=== PATIENT | male | born 1960 | race Caucasian/White ===

== ENCOUNTER 2022-01-31 02:51 | Day surgery (SDC) | payer OTHER, SELFPAY ==
[2022-01-30 17:35] VITALS: BMI 28.6
--- NOTE | 2022-01-30 18:02 | SUR.PREOP ---
Report to the Outpatient Waiting Room, entrance under the green pavilion located off [facility], at time 0630 on date 01/31/22. OR Time: 0830. - You and your visitor will be asked a series of questions to screen for COVID 19 for your protection. - Only one visitor is allowed at this time. - The patient visitor is requested to leave or wait in car when not with patient. - A mask is required within the hospital. Patients may have clear liquids (water, carbonated beverages, clear teas, apple juice) until 3 hours prior to surgery (0530) with a maximum of 20 ounces. - No food from midnight until time of surgery - Infants may have breast milk until 4 hours before surgery, formula 6 hours prior to surgery. - Children will be allowed to drink immediately following surgery. If applicable, please bring a bottle or sippy cup to assist with drinking. Juice, water, soda, and popsicles are readily available. For infants on formula, please bring formula the day of surgery. Pacifiers are allowed. Take the following medications with a SIP of water the morning of surgery: Carvedilol, Diltiazem HCL Medications to discontinue per physician NA Date to take last dose NA Please no make-up, nail irish, hairspray, perfume, deodorant, or body powder the day of surgery. No jewelry (including any body piercings) or valuables the day of surgery, leave them at home. Please take a shower or bath the night before, or the morning of, surgery with an antibacterial soap. Wear comfortable, loose fitting clothing. Children are encouraged to wear pajamas. - Jewelry must be removed prior to entering the operating room. Rings and piercings that are not removed may be cut off. - The hospital will not accept responsibility for valuables. - Please leave all valuables, including medications, at home the day of surgery. If you are going home after surgery, a licensed sprinkling truck driver must drive you home. - NO public transportation without another adult. - We recommend that an adult stay with you for 24 hours following discharge. - We also recommend that you do not drive, make important decision, drink alcoholic beverages, or take any drugs that were not prescribed by your health care provider for at least 24 hours after your discharge time. For Pediatric surgeries, we recommend two adults accompany the child home (only one inside the building at this time). Follow any additional instructions given to you from your surgeon. If you or anyone in your household have experienced Covid symptoms in the past week, please notify your surgeon or the nurse liaison at the phone number below for possible testing. Telephone instructions given to ____patient and asked if any additional questions and then verbalized understanding. Patient advised to call surgeon office or pre surgery nurse liaison [phone] if any additional questions.
--- NOTE | ~2022-01-31 | XR_ITS ---
EXAMINATION: XR surgery orthopedic DATE: 01/31/2022 10:49 INDICATION: Post amputation of the left fourth toe TECHNIQUE: Single dorsal plantar fluoroscopic image of the left forefoot was obtained during procedur e performed by Dr. Mays. Radiologist was not present for the imaging or procedure. The amount of fluoroscopy time used during this procedure was 0.1 minutes. COMPARISON: None. FINDINGS: Partial left fourth toe amputation with osteotomy at the level of the distal neck of the fourth proxi mal phalanx. There is some postoperative gas in the soft tissues along the resection margin. Remainde r of the bones are in normal alignment with no fracture and with normal joint spaces. IMPRESSION: 1. Left fourth toe amputation with osteotomy at the level of the distal neck of the fourth proximal p halanx. Reviewed, dictated and finalized at location A. IMPRESSION: 1. Left fourth toe amputation with osteotomy at the level of the distal neck of the fourth proximal phalanx.
--- NOTE | 2022-01-31 07:08 | WPDHPUPDATE1 ---
History and Physical Update Update Date/Time: 01/31/22 07:08 History and Physical has been reviewed, including an updated exam of the patient. There are NO changes in the patient's condition. Risks, benefits, and alternatives have been discussed and questions answered. Patient agrees to proceed with procedure.
[2022-01-31 07:53] VITALS: BP 173/86; PULSE 83; RESP 16; TEMP 36.6; O2SAT 99
[2022-01-31 08:15] LABS: Glucose Point of Care 123 mg/dl (65-105)
--- NOTE | 2022-01-31 09:26 | WPDANESEPPF ---
Anes - Initial Pre Proc Eval Procedure: Operation Date: 01/31/22 10:15 Proposed Procedures p Partial Amputation Fourth Toe Left Foot - John Mays JR, MD Date/Time: 01/31/22 09:26 Surgeon: John Mays JR, MD Pre Op Diagnosis: Osteomyelitis Left 4th toe Patient Data Age: 61 Gender: M Height: 1.8 m Weight: 93.44 kg Last Vital Signs Temp 36.6 C 01/31/22 07:53 Pulse 83 01/31/22 07:53 Resp 16 01/31/22 07:53 BP 173/86 H 01/31/22 07:53 Pulse Ox 99 01/31/22 07:53 O2 Del Method Room Air 01/31/22 07:53 Allergies Allergy/AdvReac Type Severity Reaction Status Date / Time No Known Allergies Allergy Verified 01/31/22 07:49 Home Medications Medication Instructions Recorded Confirmed Type aspirin 325 mg tablet (Kassandra 325 mg PO DAILY 03/16/20 01/30/22 History Aspirin) carvedilol 25 mg tablet 25 mg PO Q12H 03/16/20 01/30/22 History diltiazem HCl 120 mg capsule,24 120 mg PO DAILY 03/16/20 01/30/22 History hr,extended release (Taztia XT) simvastatin 40 mg tablet 40 mg PO DAILY #90 tabs 06/09/21 01/30/22 Rx lisinopril 40 mg tablet 40 mg PO DAILY #90 tabs 08/16/21 01/30/22 Rx glimepiride 4 mg tablet 4 mg PO BID #180 tabs 11/18/21 01/30/22 Rx metformin 500 mg tablet 500 mg PO TID #270 tabs 01/25/22 01/30/22 Rx Laboratory Tests 01/31/22 08:13 POC Capillary Glucose 123 mg/dl H mg/dl (65-105) Patient hx anesthesia problems: none Family hx anesthesia problems: none Results Review: All pre-operative results and documents have been reviewed as part of the pre-operative evaluation. [facility] Past Medical History Medical History (Updated 01/31/22 @ 09:27 by Andrea Aponte MD) Atherosclerotic heart disease of nikolai coronary artery without angina pectoris CAD (coronary artery disease) Essential (primary) hypertension Gastro-esophageal reflux disease without esophagitis Obesity (BMI 30-39.9) Olecranon bursitis JOHN (obstructive sleep apnea) Other hyperlipidemia Smoker Type 2 diabetes mellitus Surgical History Surgical History Hx of coronary artery bypass graft Hx of hemorrhoidectomy Hx of vasectomy Family History Family History Other Cancer Rheumatoid arthritis Social History Social History Smoking packs per day: 0.5 Smoking cigarettes per day: 10.0 Years smoked: 10 Smoking pack-years: 5.00 Smoking status: Current every day smoker Tobacco type: cigarettes Second hand tobacco smoke exposure: No Smoking end date: 07/06/11 Alcohol intake: current Drinks per week: 8 Living arrangements: with family 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 Informed Consent: The patient's anesthetic plan and its attendant risks and benefits were discussed with the patient/family/POA. Questions were solicited and answers provided to the satisfaction of the patient/family/POA.
[2022-01-31] MEDS: ceFAZolin 2 GM/D5W 50 ML 2 GM/50 ML BAG IVPB (10:16)
[2022-01-31] MEDS: BUPIVACAINE HCL 0.5% PF 30 ML VIAL INFILTRATE (10:41)
[2022-01-31] MEDS: LIDOCAINE HCL 2% LOCAL INJ 20 ML VIAL INFILTRATE (10:43)
--- NOTE | 2022-01-31 10:46 | SUR.OPER ---
FOURTH TOE CULTURE SENT TO LAB PER JN BINGHAM AND RECEIVED BY AREN IN PATH.
[2022-01-31 10:54] VITALS: BP 135/74; PULSE 79; RESP 14; O2SAT 96
--- NOTE | 2022-01-31 11:05 | W.PM.PROC2 ---
Procedure Note - Detailed Date of Procedure 01/31/22 Pre-op Diagnosis Osteomyelitis Left 4th toe Post-op Diagnosis Same Procedure Performed Partial amputation of the left fourth digit Surgeon John Mays JR, DPM Anesthesia MAC and Local Indications Chronic ulcer with contiguous osteomyelitis of the fourth toe left foot Findings Osteolysis with purulence extending to the head of the proximal phalanx of the left foot fourth toe Description of Procedure Under mild sedation, the patient was brought to the operating room, placed on the operating table in the supine position. A pneumatic ankle tourniquet was placed about the patient's ankle. Following general anesthesia, I performed a proximal fourth metatarsal Rodríguez Block. The foot was then scrubbed, prepped, and draped in the usual aseptic manner. An Esmarch bandage was then used to examine the patient's foot and pneumatic ankle tourniquet was then inflated. Surgery began in the following manner. Attention was directed to the dorsal aspect of the fourth toe left foot at the head of the proximal phalnx foot where a modified fish mouth incision was made about the head of the proximal phalanx. The distal aspect of the fourth digit phalanges were lytic with purulence was noted. I disarticulated at the proximal interphalangeal joint. All bleeders were cauterized as necessary. Next, purulence was noted extending to the head of the proximal phalanx so I used a bone cutter to resect the head of the proximal phalanx until healthy bleeding bone was noted at the diaphysis of the bone. It was flushed with copious amounts of sterile saline. The 4th digit was removed from the operative site and placed on the back table and later sent for gross and histopathology. I also took a deep wound culure swab from the disarticulation site. The remaining tissue was healthy and bleeding. The wound site was then flushed with copious amounts of sterile saline. Next, the skin was reapproximated and coapted utilizing 4-0 Prolene in simple interrupted suture fashion technique. Upon completion of the procedure, the incision was dressed with Adaptic, 4 x 4's, Kerlix, and Coban. The pneumatic ankle tourniquet was then deflated and a prompt hyperemic response noted to all digits of the foot. A surgical shoe was then applied. The patient did very well with the procedure and the anesthesia. The patient was transferred to the recovery room with vital signs stable and vascular status intact to all remaining toes of the affected foot. Following a period of postoperative monitoring, the patient will be discharged home on the following written and oral postoperative instructions: 1. Keep the dressing clean, dry, and intact. Use a cast protector bag with showers. 2. The patient should use a surgical shoe for ambulation postoperatively. 3. The patient should be on bedrest with bathroom privileges and elevate the affected foot when at rest. 4. The patient to contact Dr. Mays for all postop care and if any problems arise. 5. Prescriptions were written for Bactrim DS to be taken 1 p.o. q. 12 hours until gone.He may take regular or extra strengh Tylenol for discomfort. He is neuropathic so severe pain is not anticipated. Estimated Blood Loss 1 Tourniquet Time 16 Pathology Yes Complications No immediate complications Condition Stable Disposition Same day
[2022-01-31 11:11] LABS: Glucose Point of Care 107 mg/dl (65-105)
[2022-01-31 11:20] VITALS: BP 149/75; PULSE 73; RESP 16
[2022-01-31 11:50] VITALS: BP 152/77; PULSE 72; RESP 16
== END 2022-01-31 12:00 | disposition home or self-care (01) ==
PROVIDERS: PCP Internal Medicine; Visit Provider Podiatrist Foot & Ankle Surgery
PROC: (CPT 28825; principal; 2022-01-31 10:15)
DX: E11.621 Type 2 diabetes mellitus with foot ulcer (principal); L97.529 Non-pressure chronic ulcer of other part of left foot with unspecified severity; E11.69 Type 2 diabetes mellitus with other specified complication; M86.172 Other acute osteomyelitis, left ankle and foot; I25.10 Atherosclerotic heart disease of native coronary artery without angina pectoris; I10 Essential (primary) hypertension; K21.9 Gastro-esophageal reflux disease without esophagitis; G47.33 Obstructive sleep apnea (adult) (pediatric); E78.2 Mixed hyperlipidemia; E66.9 Obesity, unspecified; Z68.28 Body mass index [BMI] 28.0-28.9, adult; F17.210 Nicotine dependence, cigarettes, uncomplicated; Z95.1 Presence of aortocoronary bypass graft; Z79.84 Long term (current) use of oral hypoglycemic drugs; Z79.82 Long term (current) use of aspirin
CPT/HCPCS: 28825; 82948; 87070; 87075; 87147; 87181; 87186; 87205; 88305; 88311; 99199; A9270; J0690; J2250; J2704; J3010

== ENCOUNTER 2022-07-31 08:08 | Outpatient (CLI) | payer OTHER, SELFPAY ==
--- NOTE | ~2022-07-31 | US_ITS ---
EXAMINATION: US art doppler w press MICHEAL BI DATE: 07/31/2022 09:02 INDICATION: Peripheral vascular disease. TECHNIQUE: Segmental pressures and plethysmographic and Doppler waveforms of the brachial and lower e xtremity arteries were obtained. COMPARISON: None. FINDINGS: Right and left brachial artery pressures of 161 mm Hg and 159 mm Hg, respectively, are concordant (no rmal difference <= 30 mmHg). The right and left high-thigh pressure indices are 0.94 and 0.91, respec tively (normal > 1.2). The right ankle-brachial index (SEAMUS) is 0.61 (normal >= 0.9-1). The right great toe-brachial index (T BI) is 0.63 (normal >= 0.6-0.8). The right lower extremity segmental pressure gradients are increased between the right high and low thigh (normal gradients <= 20-30 mmHg between adjacent levels on the same leg or the same levels on the two legs). Arterial waveforms are biphasic throughout with brisk s ystolic upstrokes at the right common femoral and superficial femoral arteries and with broadened sys tolic peaks with delayed upstrokes at the right popliteal, posterior tibial and dorsalis pedis arteri es. The left SEAMUS is 0.67. The left TBI is 0.54. The left lower extremity segmental pressure gradients are increased between the left dolzy-kqa-dica popliteal artery and the arteries at the left ankle. Arter ial waveforms are biphasic throughout with brisk systolic upstrokes at the left common femoral and cota perficial femoral arteries and with broadened systolic peaks and delayed upstrokes at the left poplit eal, posterior tibial and dorsalis pedis arteries. IMPRESSION: 1. Arterial occlusive disease to bilateral lower limbs with mildly decreased bilateral high thigh pre ssure indices, moderately decreased bilateral ankle brachial indices and with parvus and tardus wavef orms in the arteries of the bilateral lower legs. Reviewed, dictated and finalized at location L. Y ABROAD ADVISOR IMPRESSION: 1. Arterial occlusive disease to bilateral lower limbs with mildly decreased bi lateral high thigh pressure indices, moderately decreased bilateral ankle brach ial indices and with parvus and tardus waveforms in the arteries of the bilater al lower legs.
== END 2022-07-31 08:09 | disposition home or self-care (01) ==
PROVIDERS: PCP Internal Medicine; Visit Provider Internal Medicine
DX: I73.9 Peripheral vascular disease, unspecified (principal)
CPT/HCPCS: 93923

== ENCOUNTER 2025-01-12 15:55 | Outpatient (CLI) | payer OTHER, SELFPAY ==
--- NOTE | ~2025-01-12 | CT_ITS ---
CT Scan of the Chest without Contrast: Clinical Indication: Lung cancer screening, nicotine dependence Technique: Contiguous sections were acquired throughout the chest without intravenous contrast. Dose reduction technique was used on this scan by utilizing automated exposure control and iterative recon struction technique. The dose-length product (DLP) was 216.66 mGy-cm. Findings: There is no evidence of any significant mediastinal, hilar or axillary lymphadenopathy. The mediastin al soft tissues appear normal. There is no evidence of pleural or pericardial effusion. There is minimal emphysema and minimal scattered chronic interstitial changes. No discrete pulmonary nodule evident. Images through the upper abdomen reveal no abnormalities. Impression: Lung RADS 1: Negative. 12 month follow-up screening CT advised. Reviewed, dictated and finalized at location . Impression: Lung RADS 1: Negative. 12 month follow-up screening CT advised.
--- OUTSIDE RECORDS SUMMARY | 2025-01-12 15:57 | XMS_ITS | Clinical Summary ---
Author Organization [facility] Address [address] [address] Phone Care Team Providers Care Theater Usher Name Role Phone Lloyd Samaniego DO Primary Care Provider [phone] Allergies No known active allergies Medications diltiazem 120 MG Tablet daily. Active metFORMIN (GLUCOPHAGE) 500 MG Tablet 2 times daily. Active carvedilol (COREG) 25 MG Tablet 2 times daily. Active lisinopril (PRINIVIL, ZESTRIL) 20 MG Tablet daily. Active simvastatin (ZOCOR) 40 MG Tablet daily. Active glimepiride (AMARYL) 4 MG Tablet 2 times daily. Active aspirin 325 MG Tablet daily. Active Active Problems Problem Noted Date Diagnosed Date Colon polyps Hypertension DM type 2 (diabetes mellitus, type 2) Overview (06/28/2015): Non-insulin dependent CAD (coronary artery disease) Dyslipidemia Social History Tobacco Use Types Packs/Day Years Used Date Smoking Tobacco: Never Assessed Sex and Gender Information Value Date Recorded Sex Assigned at Not on file Legal Sex Male 11:32 PM CDT Gender Identity Not on file Sexual Orientation Not on file Plan of Treatment Health Maintenance Due Date Last Done Comments Diabetes: Eye Exam 1961 Diabetes: Foot Exam 1961 Diabetes: Hemoglobin A1c 1961 Hepatitis C Virus (HCV) Screening 1961 TdaP Immunization 1961 Pneumococcal Immunization Combined (1 of 2 - PCV) 1967 Diabetes: Nephropathy Screening 1979 Pneumococcal Immunization (5 0+ years) (1 of 2 - PCV) 1980 Cologuard 2011 Immunochemical Fecal Occult Blood 2011 Zoster Immunization (1 of 2) 2011 PSA Discussion 2016 Respiratory Syncytial Virus (RSV) Immunization (Adult) (1 - Risk 60-74 years 1-dose series) 2021 Colonoscopy 12/07/2023 12/06/2018, 05/04/2015 Colorectal Cancer Screening 12/07/2023 Influenza Immunization (#1) 2024 SARS-COV-2 Immunization ( season) 2024 Hepatitis B Immunization Aged Out No longer eligible based on patient's age to complete this topic Meningococcal Immunization (ACWY) Aged Out No longer eligible b ased on patient's age to complete this topic Rotavirus Immunization Aged Out No lo nger eligible based on patient's age to complete this topic Procedures Procedure Name Priority Date/Time Associated Diagnosis Comments COLONOSCOPY Routine 12/06/2018 from Last 3 Months or Most Recently Relevant to Health Maintenance Results * COLONOSCOPY (12/06/2018) us Saturnino Vogel DO PROCEDURE/MINOR SURGICAL ORDERA BLES Final Result from Last 3 Months or Most Recently Relevant to Health Maintenance Care Teams Theater Usher Relationship Specialty Start Date End Date Lloyd Samaniego DO [address] [place] [address] PCP - General Internal Medicine 09/23/17
--- OUTSIDE RECORDS SUMMARY | 2025-01-12 15:57 | XMS_ITS | Data Portability ---
Author Organization [place] - [facility], Main Office Address [address] [place] [address] Care Team Providers Care Prepress Manager Name Role Phone WHITLEY LUZ Primary Care Provider [phone] WHITLEY LUZ Referring Provider [phone] Assessment Encounter Date Assessment Date Assessment LastModified by Organization Details LastModified Time 05/08/2023 05/08/2023 HPI: 62-year-old male who came in today for evaluation of his right trapezial pain. Pain started 10 days ago. 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 He states that it felt like a sharp knife stabbing him in this area. Since that time he has had 1 episode where he was moving his arm and neck in he had a shock type sensation running into the upper arm to the elbow. This only happened 1 time. Patient has been taking klbn-heb-zwbagi r Advil use a 1 morning and 2 at night. This seems to help with his symptoms. He is still getting this sharp stabbing pain at this point and he grabs at the right trapezius muscle where he feels it. Physical exam: 62-year-old male he is 5 ft 9 209 lb. He has active elevation right shoulder to 150 external rotation 80 internal rotation is to T12. He has no pain range of motion. Excellent strength with abduction as well as external rotation of the shoulder. He has negative abdominal compression test. He has no numbness or tingling to right upper extremity. He has normal strength to the biceps, triceps, wrist flexion and extension. He has normal programmer analyst strength. Having no numbness or tingling at this point. Neck range of motion is full without discomfort. Negative Spurling's maneuver. Some mild tenderness to the right trapezius muscle on palpation. Impression: 62-year-old male who has had a strain his neck which is most likely causing some radicular symptoms into the trapezius muscle. Patient has a history of coronary artery bypass grafting done and he sees his mechanic senior next month. He gets an echo every year. He states his last ejection fraction was about 50%. I recommended that he talk with his mechanic senior about taking anti-inflammato charles to make sure he does not cause any cardiac issues by taking knees. Physician management I have recommended give patient a Medrol Dosepak that hopefully will quiet down the nerve irritation. I did offer him formal physical therapy but he declined, he works at least 12 hours a day and does not feel he is going to have time for this. Hopefully the steroids will quiet this down very quickly. If it does not he will call and we can set up some therapy. He has no motor deficit so hopefully this will quiet down very quickly. His neck looks very good on the x-rays today. clifford Not available 05/08/2023 10:43:30 Plan of Treatment Reminders Order Date Submit Date Provider Last Modified By Organization Details Last Modified Time Details Appointments None recorded. Lab None recorded. Referral None recorded. Procedures None recorded. Surgeries None recorded. Imaging XR, shoulder 2022 023 [email or web address] [facility] [place], [address], [place], [address], 3 10:00:38 XR, cervical spine, 4 or 5 view 2022 023 [email or web address] [facility] [place], [address], [place], [address], 3 10:49:54 Medication Orders Medrol (Felice) 4 mg tablets in a dose pack 2022 023 [email or web address] [facility], [address], [place], [address], 3 13:13:49 Patient TargetsNo targets recorded. Patient InstructionsNo instructions recorded. Reason for Referral None Reported. Results Created Date Observation Date Name Description Value Unit Range Abnormal Flag Note LastModifiedBy Organization Detail LastModifiedTime 05/08/20 23 XR, shoul veronica No observ ation record ed. [email or web address] [facility] [place] [address], [place], [address], 05/08/2023 10:43:22 05/08/20 23 XR, cervi shai spine , 4 or 5 view No observ ation record ed. [email or web address] [facility] [place] [address], [place], [address], 05/08/2023 10:43:21 Result Notes None recorded. Problems Name Problem SNOMED Code Status Onset Date Resolution Date Notes Provider Name and Address Organization Details Recorded Time Pain of right shoulder joint [id number] 00 Active 2022 CLAIR Bain [facility] 09:33:06 Problem Notes None recorded. Procedures Surgical History Date Name Laterality Status Provider Name and Address Organization Details Recorded Time Bypass completed CLAIR Bain [facility] 05/08/2023 09:32:40 Imaging Results None recorded. Procedure Notes None recorded. Medical Equipment None Reported. Medications Name Sig Start Date Stop Date Status Note LastModified by Organization Details LastModified Time amoxicillin 500 mg capsule TAKE 1 CAPSULE BY MOUTH THREE TIMES DAILY 05/08 completed Not Available Not Available Not Available metformin 500 mg tablet TAKE 1 TABLET BY MOUTH THREE TIMES DAILY active Not Available Not Available No t Available carvedilol 25 mg tablet TAKE 1 TABLET BY MOUTH TWICE DAILY active Not Available Not Available No t Available simvastatin 40 mg tablet TAKE 1 TABLET BY MOUTH ONCE DAILY active Not Available Not Available No t Available diltiazem ER 120 mg capsule,24 hr,extended release TAKE 1 CAPSULE BY MOUTH ONCE DAILY 05/08 completed Not Available Not Available Not Available glimepiride 4 mg tablet TAKE 1 TABLET BY MOUTH TWICE DAILY active Not Available Not Available No t Available methylpredn isolone 4 mg tablets in a dose pack TAKE BY MOUTH DIRECTED ON INSIDE OF PACKAGE active Not Available Not Available No t Available lisinopril 40 mg tablet TAKE 1 TABLET BY MOUTH ONCE DAILY active Not Available Not Available No t Available tadalafil 10 mg tablet TAKE 1 TABLET BY MOUTH ONCE DAILY NEEDED FOR SEXUAL ACTIVITY APPROXIMA TELY 30 MINUTES BEFORE SEXUAL ACTIVITY. MAX 1/DAY 05/08 completed Not Available Not Available Not Available aspirin active Not Available Not Avail able Not Available Taztia XT active Not Available Not Mary Carmen ilable Not Available Rybelsus 3 mg tablet TAKE 1 TABLET BY MOUTH ONCE DAILY active Not Available Not Available No t Available Vitals Date Recorded Body height Body mass index (BMI) Body weight Provider Name and Address Organization Details Last Updated DateTime 05/08/2023 175.26 cm 30.9 kg/m2 90231.81 g CLAIR Bain [facility] 05/08/2023 09:48:10 Social History None recorded. Functional Status Question Answer Note LastModified by Organizat ion Details LastModified Time What is your level of alcohol consumption? Occasional Information not available 05/08/2023 Mental Status None recorded. Family History Nothing Reported. Medical History No medical history recorded. Past Encounters Encounter ID Performer Location Encounter Start Date Encounter Closed Date Diagnosis/Indication Diagnosis SNOMED-CT Code Diagnosis ICD10 Code Diagnosis Note [id number] Bryant Calle MD [facility] [place] [address] [place] [address] 05/08/2023 09:04:34 05/08/2023 10:49:53 Pain of right shoulder joint [id number] M25.511 Health Concerns Section Related Observation LastModified by Organization Detai ls LastModified Time None Recorded Concern Status LastModified by Organization Details LastModified Time None Recorded Advance Directives Directive None Recorded Payers Insurance Date Sequence Insurance Name Policy Number Policy Yoon Covered Member ID Yoon Member ID Guarantor Name 05/14/2023 1 [facility] [id number] Jim Garcia [id number] Jim Garcia
--- OUTSIDE RECORDS SUMMARY | 2025-01-12 15:57 | XMS_ITS | Clinical Summary ---
Author Organization [facility] [address] Address [address] [place] [address] Care Team Providers Care Shell Sieve Operator Name Role Phone Woo Antunez MD Unavailable [phone] Jesus Momin DO Primary Care Provider [phone] Allergies No known active allergies Medications aspirin 325 mg EC tablet take 1 tablet (325MG) by oral route every day 0 2 Active metFORMIN (GLUCOPHAGE) 500 mg tablet take 1 tablet (500MG) by oral route 2 times every day with morning and evening meals 0 2 Active glimepiride (AMARYL) 4 mg tablet take 1 tablet (4MG) by oral route twice daily 0 2 Active simvastatin (ZOCOR) 40 mg tablet TAKE ONE TABLET BY MOUTH ONCE DAILY IN THE EVENING 90 tablet 3 8 Active tadalafiL (ADCIRCA) 10 mg tablet TAKE 1 TABLET BY MOUTH ONCE DAILY NEEDED FOR SEXUAL ACTIVITY APPROXIMATELY 30 MINUTES BEFORE SEXUAL ACTIVITY. MAX 1/DAY 2 Active lisinopriL (PRINIVIL,ZEST RIL) 40 mg tablet Take 1 tablet (40 mg total) by mouth daily 4 Active diltiazem (TIAZAC) 120 mg 24 hr capsule Take 1 capsule by mouth once daily 90 capsule 2 4 Active carvediloL (COREG) 25 mg tablet Take 1 tablet by mouth twice daily 180 tablet 2 4 Active Jardiance 25 mg tablet Take 1 tablet (25 mg total) by mouth daily 4 Active hydrALAZINE (APRESOLINE) 50 mg tablet 5 Active clopidogreL (PLAVIX) 75 mg tablet Take 1 tablet by mouth once daily 90 tablet 3 5 Active Active Problems Problem Noted Date Diagnosed Date Atherosclerotic PVD with intermittent claudicati on 05/04/2024 Assessment & Plan (12/23/2024 11:40 AM CDT): Continues to have non limiting claudication or any rest pain or ischemic ulcerations. Continue aspirin Plavix statin therapy strongly encouraged complete smoking cessation and follow up in 3 months with lower extremity arterial duplex with ABIs. Assessment & Plan (06/23/2024 3:50 PM WATER TREATMENT PLANT ENGINEER): Impression: Patient is status post staged endovascular intervention to bilateral lower extremity for treatment of disabling claudication. Patient reports claudication symptoms to bilateral lower extremities have resolved. Lower extremity arterial duplex reveals patent stent to the left lower extremity with triphasic waveforms. Plan: Continue ongoing risk factor modifications. -continue aspirin and Plavix. -patient to follow-up in 6 months for re-evaluation with repeat lower extremity arterial duplex. Encouraged patient to make a sooner appointment if he develops any symptoms of claudication, ischemic rest pain or nonhealing ulcerations. Pain in joint of right shoulder 05/08/2023 PVD (peripheral vascular disease) 08/27/2022 Assessment & Plan (05/26/2024 12:11 PM WATER TREATMENT PLANT ENGINEER): Status post balloon angioplasty drug-eluting stent placement x2 to left SFA. Claudication symptoms have resolved. Patient is feeling well is happy and in good spirits continue aspirin Plavix and follow-up in 1 month for new baseline lower extremity arterial duplex Assessment & Plan (05/06/2024 11:52 AM CDT): Limiting claudication to both lower extremities. Starting to affect his work and job ability. Discussed next steps of undergoing an angiogram and its potential risks. Answered all questions to his satisfaction. He is agreeable wished to proceed. Also discussed with Dr. Antunez. Assessment & Plan (02/04/2024 8:30 AM CDT): Stable non disabling bilateral lower extremity claudication. Long discussion with the patient about next steps. We agreed to continue current conservative measures which include exercise regimen and ongoing risk factor modification. We will monitor over the next 6 months. Follow up at that time. Assessment & Plan (08/03/2023 9:32 AM WATER TREATMENT PLANT ENGINEER): Bilateral lower extremity arterial occlusive disease with stable claudication symptoms. Continues to deny any worsening of the symptoms and no rest pain no open wounds. Plan: Follow-up in 6 months with a lower extremity arterial Doppler. Follow-up sooner for any worsening symptoms rest pain symptoms or open wounds. Assessment & Plan (01/13/2023 3:52 PM CDT): Patient is stable claudicant. Continues to have lower extremity claudication symptoms however they are not life-limiting at this time. Denies any rest pain or any wounds to either foot. They are warm distal signals obtained. Plan: Follow-up in 6 months for routine surveillance with a lower extremity arterial Doppler. Assessment & Plan (12/18/2022 12:07 PM CDT): New symptoms of numbness to dorsal aspect of left 1st toe, progressing to 1st through 3rd toes within the past week. Will have patient scheduled for lower extremity arterial Doppler, follow-up in the office in 1 week for re-evaluation Assessment & Plan (08/27/2022 1:13 PM WATER TREATMENT PLANT ENGINEER): Patient has evidence of bilateral lower extremity calf claudication non disabling. At this point recommended ongoing conservative measures which include exercise regimen and risk factor modification. Follow-up 6 months with repeat evaluation. CAD (coronary artery disease) 08/13/2022 Colon polyps 08/13/2022 Type 2 diabetes mellitus wit h diabetic peripheral angiopathy without gangrene, with long-term current use of insulin 08/13/2022 Overview (08/13/2022): Non-insulin dependent Assessment & Plan (06/23/2024 3:51 PM WATER TREATMENT PLANT ENGINEER): Impression: Chronic and stable Plan: Continue glimepiride and metformin Assessment & Plan (02/04/2024 8:30 AM CDT): Diabetes type 2 chronic controlled. Continue current medical management. Assessment & Plan (01/13/2023 3:52 PM CDT): Chronic diabetes being controlled with diet and medications. Continue current medical therapy. Assessment & Plan (08/27/2022 1:12 PM WATER TREATMENT PLANT ENGINEER): Chronic and controlled. Continue metformin and diet. Dyslipidemia 08/13/2022 Assessment & Plan (06/23/2024 3:50 PM WATER TREATMENT PLANT ENGINEER): Impression: Chronic stable. Plan: Continue simvastatin Assessment & Plan (02/04/2024 8:30 AM CDT): Dyslipidemia chronic controlled. Continue Zocor. Assessment & Plan (01/13/2023 3:49 PM CDT): Continue simvastatin Assessment & Plan (08/27/2022 1:12 PM WATER TREATMENT PLANT ENGINEER): Dyslipidemia chronic and controlled. Continue Zocor. 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 Cardiomyopathy, ischemic 11/03/2017 Encounters Date Type Department Care Team Description 12/22/2024 9:30 AM CDT Office Visit [facility] Vein [facility] [address] [place] [address] [address] [place] [address] Jenna Infante NP Atherosclerotic PVD with intermittent claudication (Primary Dx); Dyslipidemia; Primary hypertension; Type 2 diabetes mellitus with diabetic peripheral angiopathy without gangrene, with long-term current use of insulin (HCC) 12/22/2024 8:47 AM CDT - 12/22/2024 11:59 PM CDT Hospital Encounter [facility] Building [address] [place] [address] [address] [place] [address] Aftercare following surgery of the circulatory system Discharge Disposition: Discharge to home or self care 12/22/2024 8:45 AM CDT - 12/22/2024 11:59 PM CDT Hospital Encounter [facility] [address] [place] [address] Aftercare following surgery of the circulatory system Discharge Disposition: Discharge to home or self care from Last 3 Months Surgical History Surgery Date Site/Laterality Comments CORONARY ARTERY BYPASS GRAFT HEMORRHOID SURGERY hemorrhoidectomy VASECTOMY ANGIOPLASTY / STENTING FEMORAL 05/11/2024 Left LLE seletive angiogram. BA & stenting x2 SFA. ANGIOPLASTY 05/18/2024 Right Aortogram. RLE angiogram. DCBA RT SFA. Medical History Medical History Date Comments DM2 (diabetes mellitus, type 2) (HCC) Diabetes Type II Hypertension Hypertension Atherosclerotic heart disease CAD (coronary artery disease) GERD (gastroesophageal reflux disease) Obesity JOHN (obstructive sleep apnea) Hyperlipidemia Family History Medical History Relation Name Comments Cancer Other Rheum arthritis Other Relation Name Status Comments Other Social History Tobacco Use Types Packs/Day Years Used Date Smoking Tobacco: Former Cigarettes Q uit: 11/04/2011 Smokeless Tobacco: Never Tobacco Cessation:Counseling Given: Not Answered Alcohol Use Standard Drinks/Week Comments No 0 (1 standard drink = 0.6 oz pur e alcohol) AUDIT-C Answer Date Recorded Q1: How often do you have a drink containing alcohol? 4 or more times a week 05/18/2024 Q2: How many drinks containi ng alcohol do you have on a typical day when you are drinking? 1 or 2 Q3: How often do you have si x or more drinks on one occasion? Never 05/18/2024 Personal Safety Answer Date Recorded Have you ever been in or are you currently in a harmful physical or emotional relationship or is someone making you feel afraid or unsafe? Denies 05/18/2024 Sex and Gender Information Value Date Recorded Sex Assigned at Not on file Legal Sex Male 4:42 AM WATER TREATMENT PLANT ENGINEER Gender Identity Not on file Sexual Orientation Not on file Obstetrics History Last Filed Vital Signs Vital Sign Reading Time Taken Comments Blood Pressure 165/79 12/22/2024 9:47 AM CDT Pulse 65 12/22/2024 9:47 AM CDT Temperature 36.5 C (97.7 F) 05/18/2024 2:50 PM WATER TREATMENT PLANT ENGINEER Respiratory Rate 18 05/18/2024 4:35 PM WATER TREATMENT PLANT ENGINEER Oxygen Saturation 98% 08/11/2024 4:00 PM WATER TREATMENT PLANT ENGINEER Inhaled Oxygen Concentration - - Weight 95.3 kg (210 lb) 12/22/2024 9:47 AM CDT Height 180.3 cm (5' 11) 12/22/2024 9:47 AM CDT Body Mass Index 29.29 12/22/2024 9:47 AM CDT Plan of Treatment Health Maintenance Due Date Last Done Comments Albumin Creatinine Ratio, Urine 1961 Colon Cancer Screening-Colonoscopy 1961 Depression Screening 1961 Hemoglobin A1C 1961 Hepatitis C Screening 1961 Prostate Cancer Screening-PSA 1961 Dilated Eye Exam 1961 Foot Exam 1961 DTaP/Tdap/Td Vaccine (1 - Tdap) 1972 Hepatitis B Screening 1979 Regular Well Visit/Exam 18-64 1979 Pneumococcal vaccine <65 (1 of 2 - PCV) 1980 Zoster Vaccine (1 of 2) 2011 Lipid Panel 09/28/2024 09/29/2023, 010 11/2022, 07/11/2021, Additional history exists Influenza Vaccine (Season Ended) 2025 eGFR 05/18/2025 05/18/2024, 05/11/2024 Medical Devices Implanted Type Area Health Physics Technician Device Identifier Shelf Expiration Date Model / Serial / Lot [employer] Zilver Ptx 6mm 80mm 125cm Drug Elute Otw Delivery System [id number] - [id number] Implanted:Qty: 1 on 05/11/2024 by Woo Antunez MD at [facility] Stent [employer] [id number] 10/05/2025 [id number] / / [id number] [employer] Zilver Ptx 6mm 140mm 125cm Otw Drug Elute Delivery System [id number] - [id number] Implanted:Qty: 1 on 05/11/2024 by Woo Antunez MD at [facility] Stent [employer] [id number] 01/13/2026 [id number] / / [id number] [employer] System Closure Repair Femoral Artery Suture Mediated Perclose Prostyle 23903-48 - [id number] Implanted:Qty: 1 on 05/11/2024 by Woo Antunez MD at [facility] [employer] 03/05/2026 [id number] / / [id number] [employer] System Closure Repair Femoral Artery Suture Mediated Perclose Prostyle 50699-40 - [id number] Implanted:Qty: 1 on 05/18/2024 by Woo Antunez MD at [facility] [employer] 03/05/2026 [id number] / / [id number] Procedures Procedure Name Priority Date/Time Associated Diagnosis Comments US SEAMUS Schedule Routine, Read Routine (OP Routine) 12/22/2024 10:18 AM CDT Aftercare following surgery of the circulatory system VL US ARTERIAL DUPLEX LOWER EXTREMITY BILATERAL Schedule Routine, Read Routine (OP Routine) 12/22/2024 10:18 AM CDT Aftercare following surgery of the circulatory system EGFR STAT 05/18/2024 9:16 AM WATER TREATMENT PLANT ENGINEER PVD (peripheral vascular disease) POCT LIPID PANEL Routine 09/29/2023 3:26 PM CDT Hx of CABG from Last 3 Months or Most Recently Relevant to Health Maintenance Results * US SEAMUS (12/22/2024 10:18 AM CDT) Anatomical Region Laterality Modality Vascular N/A Ultrasound 12/22/2024 9:00 AM CDT Narrative 12/23/2024 10:50 AM CDT Lower Extremity Arterial Doppler Report Patient Name: TIARA RUBIO B : 1960 Study Date: 12/22/2024 9:00:00 AM Gender: M Mortgage Underwriter: Bria Allen RN/RVT Ref Provider: WOO ANTUNEZ Quality: Adequate Order Provider: WOO ANTUNEZ PROCEDURES: Arterial Report: Ankle - Brachial Index Doppler exam. INDICATIONS: Z48.812 Encounter for surgical aftercare following surgery on the circulatory system. HISTORY: S/P BA/STENT LEFT SFA 05/11/2024 S/P DCBA RIGHT SFA 05/18/2024. COMPARISONS: The previous exam was completed on 06/23/2024 RT PT/DP .94/1.01 LT PT/DP .99/.88. MEASUREMENTS: Right Value Left Value Rt Brachial Pressure 172 mmHg Lt Brachial Pressure 172 mmHg Rt ACTIVITIES DIRECTOR SCOUTING Pressure 111 mmHg Lt ACTIVITIES DIRECTOR SCOUTING Pressure 136 mmHg Rt DPA Pressure 113 mmHg Lt DPA Pressure 133 mmHg Rt PT SEAMUS Resting 0.65 Lt PT SEAMUS Resting 0.79 Rt DP SEAMUS Resting 0.66 Lt DP SEAMUS Resting 0.77 FINDINGS: Right Posterior Tibial Artery Analysis: The posterior tibial waveform is monophasic. Right Dorsalis Pedis Artery Analysis: The dorsalis pedis waveform is monophasic. Left Posterior Tibial Artery Analysis: The posterior tibial waveform is biphasic. Left Dorsalis Pedis Artery Analysis: The dorsalis pedis waveform is triphasic. - CONCLUSIONS: 1. Ankle-brachial index of 0.5-0.8 is consistent with claudication disease and moderate occlusive arterial disease in the bilateral lower extremities. ATTESTATION: I have reviewed and interpreted the pertinent images and measurements of this study. I attest to the conclusions in the final report that is provided above. Electronically Signed By: Woo Antunez MD 12/23/2024 10:48:31 AM CDT Procedure Note Woo Antunez MD - 12/23/2024 Lower Extremity Arterial Doppler Report Patient Name: TIARA RUBIO B : 1960 Study Date: 12/22/2024 9:00:00 AM Gender: M Mortgage Underwriter: Brai Allen RN/RVT Ref Provider: WOO ANTUNEZ Quality: Adequate Order Provider: WOO ANTUNEZ PROCEDURES: Arterial Report: Ankle - Brachial Index Doppler exam. INDICATIONS: Z48.812 Encounter for surgical aftercare following surgery on thecirculatory system. HISTORY: S/P BA/STENT LEFT SFA 05/11/2024 S/P DCBA RIGHT SFA 05/18/2024. COMPARISONS: The previous exam was completed on 06/23/2024 RT PT/DP .94/1.01 LT PT/DP.99/.88. MEASUREMENTS: Right Value Left Value Rt Brachial Pressure 172 mmHg Lt Brachial Pressure 172 mmHg Rt ACTIVITIES DIRECTOR SCOUTING Pressure 111 mmHg Lt ACTIVITIES DIRECTOR SCOUTING Pressure 136 mmHg Rt DPA Pressure 113 mmHg Lt DPA Pressure 133 mmHg Rt PT SEAMUS Resting 0.65 Lt PT SEAMUS Resting 0.79 Rt DP SEAMUS Resting 0.66 Lt DP SEAMUS Resting 0.77 FINDINGS: Right Posterior Tibial Artery Analysis: The posterior tibial waveform is monophasic. Right Dorsalis Pedis Artery Analysis: The dorsalis pedis waveform is monophasic. Left Posterior Tibial Artery Analysis: The posterior tibial waveform is biphasic. Left Dorsalis Pedis Artery Analysis: The dorsalis pedis waveform is triphasic. - CONCLUSIONS: 1. Ankle-brachial index of 0.5-0.8 is consistent with claudication diseaseand moderate occlusive arterial disease in the bilateral lower extremities. ATTESTATION: I have reviewed and interpreted the pertinent images and measurements ofthis study. I attest to the conclusions in the final report that is provided above. Electronically Signed By: Woo Antunez MD 12/23/2024 10:48:31 AM CDT us Woo Antunez MD IMG US PROCEDURES Final Re sult * US Arterial Duplex Lower Extremity Bilateral (12/22/2024 10:18 AM CDT) Anatomical Region Laterality Modality Vascular Bilateral Ultrasound 12/22/2024 9:13 AM CDT Narrative 12/23/2024 10:50 AM CDT Lower Extremity Arterial Duplex Report Patient Name: TIARA RUBIO B : 1960 (64y 5m) Gender: M Study Date: 12/22/2024 09:13:18 AM Ht(Inch): Wt(Lb): BSA: Mortgage Underwriter: Bria Allen Provider: WOO ANTUNEZ Quality: Adequate Ref Provider: WOO ANTUNEZ PROCEDURES: Arterial Report: A non-invasive vascular imaging study of the right lower extremity arteries was performed using B-mode ultrasound, color flow, and spectral Doppler. A non-invasive vascular imaging study of the left lower extremity arteries and stent was performed using B-mode ultrasound, color flow, and spectral Doppler. INDICATIONS: Z48.812 Encounter for surgical aftercare following surgery on the circulatory system. HISTORY: CLAUDICATION BLE. S/P BA/STENT LEFT SFA 05/11/2024 S/P DCBA RIGHT SFA 05/18/2024 HTN/HLD/DM/SMOKER/ CABG 2009. COMPARISONS: The previous exam was completed on 06/23/2024. MEASUREMENTS: Right Value Left Value Rt DELI CUTTER SLICER Prx PSV 85.00 cm/sec Lt DELI CUTTER SLICER Prx PSV 106.00 cm/sec Rt Profunda Prx PSV 100.00 cm/sec Lt Profunda Prx PSV 65.00 cm/sec Rt SFA Prx PSV 64 then 275 cm/sec Lt SFA Dst PSV 129.00 cm/sec Rt SFA Mid PSV 18.00 cm/sec Lt Pop Prx PSV 44.00 cm/sec Rt SFA Dst PSV 27.00 cm/sec Lt Pop Dst PSV 60.00 cm/sec Rt Pop Prx PSV 17.00 cm/sec Rt Pop Dst PSV 28.00 cm/sec STENTS: Left Value Location SFA Lt Stent Prx PSV 86.00 cm/sec Lt Stent Mid PSV 101.00 cm/sec Lt Stent Dst PSV 98.00 cm/sec Lt Stent Dst [place] PSV 107.00 cm/sec FINDINGS: Right: Increased velocities noted of the right proximal superficial femoral artery. Stent 1: The stent is located in the SFA. Patent lower extremity stent with no evidence of stenosis. CONCLUSION: 1. There is severe >75% stenosis in the right superficial femoral artery. 2. The arterial stent is patent with no evidence of stenosis. ATTESTATION: I have reviewed and interpreted the pertinent images and measurements of this study. I attest to the conclusions in the final report that is provided above. Electronically Signed By: Woo Antunez MD 12/23/2024 10:49:37 AM CDT Procedure Note Woo Antunez MD - 12/23/2024 Lower Extremity Arterial Duplex Report Patient Name: TIARA RUBIO B : 1960 (64y 5m) Gender: M Study Date: 12/22/2024 09:13:18 AM Ht(Inch): Wt(Lb): BSA: Mortgage Underwriter: Bria Allen Provider: WOO ANTUNEZ Quality: Adequate Ref Provider: WOO ANTUNEZ PROCEDURES: Arterial Report: A non-invasive vascular imaging study of the right lowerextremity arteries was performed using B-mode ultrasound, color flow, and spectralDoppler. A non-invasive vascular imaging study of the left lower extremity arteriesand stent was performed using B-mode ultrasound, color flow, and spectral Doppler. INDICATIONS: Z48.812 Encounter for surgical aftercare following surgery on thecirculatory system. HISTORY: CLAUDICATION BLE. S/P BA/STENT LEFT SFA 05/11/2024 S/P DCBA RIGHT SFA 05/18/2024 HTN/HLD/DM/SMOKER/ CABG 2009. COMPARISONS: The previous exam was completed on 06/23/2024. MEASUREMENTS: Right Value Left Value Rt DELI CUTTER SLICER Prx PSV 85.00 cm/sec Lt DELI CUTTER SLICER Prx PSV 106.00 cm/sec Rt Profunda Prx PSV 100.00 cm/sec Lt Profunda Prx PSV 65.00 cm/sec Rt SFA Prx PSV 64 then 275 cm/sec Lt SFA Dst PSV 129.00 cm/sec Rt SFA Mid PSV 18.00 cm/sec Lt Pop Prx PSV 44.00 cm/sec Rt SFA Dst PSV 27.00 cm/sec Lt Pop Dst PSV 60.00 cm/sec Rt Pop Prx PSV 17.00 cm/sec Rt Pop Dst PSV 28.00 cm/sec STENTS: Left Value Location SFA Lt Stent Prx PSV 86.00 cm/sec Lt Stent Mid PSV 101.00 cm/sec Lt Stent Dst PSV 98.00 cm/sec Lt Stent Dst [place] PSV 107.00 cm/sec FINDINGS: Right: Increased velocities noted of the right proximal superficialfemoral artery. Stent 1: The stent is located in the SFA. Patent lower extremity stentwith no evidence of stenosis. CONCLUSION: 1. There is severe >75% stenosis in the right superficial femoralartery. 2. The arterial stent is patent with no evidence of stenosis. ATTESTATION: I have reviewed and interpreted the pertinent images and measurements ofthis study. I attest to the conclusions in the final report that is provided above. Electronically Signed By: Woo Antunez MD 12/23/2024 10:49:37 AM CDT us Woo Antunez MD IM US PROCEDURES Final Re sult * eGFR (05/18/2024 9:16 AM WATER TREATMENT PLANT ENGINEER) eGFR >90 >=60 mL/min/1. 73 m2 Comment: Interpretive Data Reference Interval Normal >/= 90 mL/min/1.73m2 Mildly decreased* 60 - 89 mL/min/1.73m2 Mildly to moderately decreased 45 - 59 mL/min/1.73m2 Moderately to severely decreased 30 - 44 mL/min/1.73m2 Severely decreased 15 - 29 mL/min/1.73m2 Kidney Failure < 15 mL/min/1.73m2 *Relative to young adult level Estimated glomerular filtration rate is determined by the 2020 CKD-EPI equation recommended by the National Kid[employer] Foundation (A Unifying Approach to GFR Estimation: Recommendations of the NKF-ASK Task Force on Reassessing the Inclusion of Race in Diagnosing Kidney Disease, JASN 202). The CKD-EPI equation should not be used for patients with unstable renal function and has not been validated in children and those over 70. Current interpretive data was last reviewed 2021. Blood 05/18/2024 9:16 AM WATER TREATMENT PLANT ENGINEER 05/18/2024 9:20 AM WATER TREATMENT PLANT ENGINEER us Woo Antunez MD LAB BLOOD ORDERABLES Final Result [facility] [address] [facility] Department [place] [address] * POCT lipid panel (09/29/2023 3:26 PM CDT) Cholesterol, POC 145 mg/dL HDL, POC 35 mg/dL Triglycerides, POC 111 mg/dL LDL Cholesterol POC 88 mg/dL Chol/HDL Ratio, POC 2.5 Non-HDL Cholesterol, POC 110 mg/dL Cholesterol Total, POC 145 mg/dL Capillary blood 09/29/2023 3 :26 PM CDT us Sebastian Patel MD POINT OF CARE TEST ORDER ABILE Final Result from Last 3 Months or Most Recently Relevant to Health Maintenance Insurance [facility] H[facility]/PPO Address: [address] [address] [facility]/PPO Address: [place] [address] Care Teams Shell Sieve Operator Relationship Specialty Start Date End Date Jesus Momin DO [address] [place], [place] [id number] PCP - General Internal Medicine 06/23/24 Woo Antunez MD [address] [place] [address] [facility] [address] [place] [address] Surgeon Vascular Surgery 05/11/24
--- OUTSIDE RECORDS SUMMARY | 2025-01-12 15:57 | XMS_ITS | Referral Summary ---
Author Organization [facility] [address] Address [address] [place] [address] Care Team Providers Care Coverstitch Machine Operator Name Role Phone Woo Antunez MD Unavailable [phone] Jesus Momin DO Primary Care Provider [phone] Encounters Date Type Department Care Team Description 12/22/2024 9:30 AM CDT Office Visit [facility] Vascular and Vein Surgery [address] [place] [address] [address] [place] [address] Jenna Infante, JAYY Atherosclerotic PVD with intermittent claudication (Primary Dx); Dyslipidemia; Primary hypertension; Type 2 diabetes mellitus with diabetic peripheral angiopathy without gangrene, with long-term current use of insulin (HCC) 12/22/2024 8:45 AM CDT - 12/22/2024 11:59 PM CDT Hospital Encounter [facility] [address] [place] [id number] Aftercare following surgery of the circulatory system Discharge Disposition: Discharge to home or self care 12/22/2024 8:47 AM CDT - 12/22/2024 11:59 PM CDT Hospital Encounter [facility] [address] [place] [id number] Aftercare following surgery of the circulatory system Discharge Disposition: Discharge to home or self care from Last 3 Months Allergies No known active allergies Medications aspirin [...] ABIs. Assessment & Plan (06/23/2024 3:50 PM CHEMICALS FERMENTATION OPERATOR): Impression: Patient is status post staged endovascular [...] 08/27/2022 Assessment & Plan (05/26/2024 12:11 PM CHEMICALS FERMENTATION OPERATOR): Status post balloon angioplasty drug-eluting stent placement [...] time. Assessment & Plan (08/03/2023 9:32 AM CHEMICALS FERMENTATION OPERATOR): Bilateral lower extremity arterial occlusive disease with [...] re-evaluation Assessment & Plan (08/27/2022 1:13 PM CHEMICALS FERMENTATION OPERATOR): Patient has evidence of bilateral lower extremity [...] dependent Assessment & Plan (06/23/2024 3:51 PM CHEMICALS FERMENTATION OPERATOR): Impression: Chronic and stable Plan: Continue glimepiride and metformin Assessment & Plan (02/04/2024 8:30 AM CDT): Diabetes type 2 chronic controlled. Continue current medical management. Assessment & Plan (01/13/2023 3:52 PM CDT): Chronic diabetes being controlled with diet and medications. Continue current medical therapy. Assessment & Plan (08/27/2022 1:12 PM CHEMICALS FERMENTATION OPERATOR): Chronic and controlled. Continue metformin and diet. Dyslipidemia 08/13/2022 Assessment & Plan (06/23/2024 3:50 PM CHEMICALS FERMENTATION OPERATOR): Impression: Chronic stable. Plan: Continue simvastatin Assessment & Plan (02/04/2024 8:30 AM CDT): Dyslipidemia chronic controlled. Continue Zocor. Assessment & Plan (01/13/2023 3:49 PM CDT): Continue simvastatin Assessment & Plan (08/27/2022 1:12 PM CHEMICALS FERMENTATION OPERATOR): Dyslipidemia chronic and controlled. Continue Zocor. 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 Cardiomyopathy, ischemic 11/03/2017 Social History Tobacco Use Types Packs/Day Years [...] on file Legal Sex Male 4:42 AM CHEMICALS FERMENTATION OPERATOR Gender Identity Not on file Sexual Orientation Not on file Last Filed Vital Signs Vital Sign Reading Time Taken Comments Blood Pressure 165/79 12/22/2024 9:47 AM CDT Pulse 65 12/22/2024 9:47 AM CDT Temperature 36.5 C (97.7 F) 05/18/2024 2:50 PM CHEMICALS FERMENTATION OPERATOR Respiratory Rate 18 05/18/2024 4:35 PM CHEMICALS FERMENTATION OPERATOR Oxygen Saturation 98% 08/11/2024 4:00 PM CHEMICALS FERMENTATION OPERATOR Inhaled Oxygen Concentration - - Weight 95.3 kg (210 lb) 12/22/2024 9:47 AM CDT Height 180.3 cm (5' 11) 12/22/2024 9:47 AM CDT Body Mass Index 29.29 12/22/2024 9:47 AM CDT Plan of Treatment Not on file Medical Devices Implanted Type Area Survey Researcher Device Identifier Shelf Expiration Date Model / Serial / Lot [employer] Zilver Ptx 6mm 80mm 125cm Drug Elute Otw Delivery System [id number] - [id number] Implanted:Qty: 1 on 05/11/2024 by Woo Antunez MD at [facility] Stent [employer] [id number] 10/05/2025 [id number] / / [id number] [employer] Zilver Ptx 6mm 140mm 125cm Otw Drug Elute Delivery System [id number] - [id number] Implanted:Qty: 1 on 05/11/2024 by Woo Antunez MD at [facility] Stent [employer] [id number] 01/13/2026 [id number] / / [id number] [place] [employer] System Closure Repair Femoral Artery Suture Mediated Perclose Prostyle 04508-48 - [id number] Implanted:Qty: 1 on 05/11/2024 by Woo Antunez MD at [facility] [employer] 03/05/2026 [id number] / / [id number] [employer] System Closure Repair Femoral Artery Suture Mediated Perclose Prostyle 24361-07 - [id number] Implanted:Qty: 1 on 05/18/2024 by Woo Antunez MD at [facility] [employer] 03/05/2026 [id number] / / [id number] Procedures Procedure Name Priority Date/Time Associated Diagnosis Comments US SEAMUS Schedule Routine, Read Routine (OP Routine) 12/22/2024 10:18 AM CDT Aftercare following surgery of the circulatory system US ARTERIAL DUPLEX LOWER EXTREMITY BILATERAL Schedule Routine, Read Routine (OP Routine) 12/22/2024 10:18 AM CDT Aftercare following surgery of the circulatory system EGFR STAT 05/18/2024 9:16 AM CHEMICALS FERMENTATION OPERATOR PVD (peripheral vascular disease) POCT LIPID PANEL [...] Study Date: 12/22/2024 9:00:00 AM Gender: M Car Mechanic Helper: Bria Allen RN/RVT Ref Provider: WOO ANTUNEZ [...] mmHg Lt Brachial Pressure 172 mmHg Rt MAINTENANCE AND REPAIR WORKER Pressure 111 mmHg Lt MAINTENANCE AND REPAIR WORKER Pressure 136 mmHg Rt DPA Pressure 113 [...] Study Date: 12/22/2024 9:00:00 AM Gender: M Car Mechanic Helper: Bria Allen RN/RVT Ref Provider: WOO ANTUNEZ [...] mmHg Lt Brachial Pressure 172 mmHg Rt MAINTENANCE AND REPAIR WORKER Pressure 111 mmHg Lt MAINTENANCE AND REPAIR WORKER Pressure 136 mmHg Rt DPA Pressure 113 [...] Date: 12/22/2024 09:13:18 AM Ht(Inch): Wt(Lb): BSA: Car Mechanic Helper: Bria Allen Provider: WOO ANTUNEZ Quality: Adequate [...] 06/23/2024. MEASUREMENTS: Right Value Left Value Rt ANIMAL CARETAKER Prx PSV 85.00 cm/sec Lt ANIMAL CARETAKER Prx PSV 106.00 cm/sec Rt Profunda Prx [...] Dst PSV 98.00 cm/sec Lt Stent Dst [place] PSV 107.00 cm/sec FINDINGS: Right: Increased velocities [...] Date: 12/22/2024 09:13:18 AM Ht(Inch): Wt(Lb): BSA: Car Mechanic Helper: Bria Allen Provider: WOO ANTUNEZ Quality: Adequate [...] 06/23/2024. MEASUREMENTS: Right Value Left Value Rt ANIMAL CARETAKER Prx PSV 85.00 cm/sec Lt ANIMAL CARETAKER Prx PSV 106.00 cm/sec Rt Profunda Prx [...] Dst PSV 98.00 cm/sec Lt Stent Dst [place] PSV 107.00 cm/sec FINDINGS: Right: Increased velocities [...] Re sult * eGFR (05/18/2024 9:16 AM CHEMICALS FERMENTATION OPERATOR) eGFR >90 >=60 mL/min/1. 73 m2 Comment: [...] of Race in Diagnosing Kidney Disease, JASN 2020). The CKD-EPI equation should not be used for patients with unstable renal function and has not been validated in children and those over 70. Current interpretive data was last reviewed 2021. Blood 05/18/2024 9:16 AM CHEMICALS FERMENTATION OPERATOR 05/18/2024 9:20 AM CHEMICALS FERMENTATION OPERATOR us Woo Antunez MD LAB BLOOD ORDERABLES Final Result [facility] [address] [facility] Department [place] [address] * POCT lipid panel (09/29/2023 3:26 PM CDT) Cholesterol, POC 145 mg/dL HDL, POC 35 mg/dL Triglycerides, POC 111 mg/dL LDL Cholesterol POC 88 mg/dL Chol/HDL Ratio, POC 2.5 Non-HDL Cholesterol, POC 110 mg/dL Cholesterol Total, POC 145 mg/dL Capillary blood 09/29/2023 3 :26 PM CDT us Sebastian Patel MD POINT OF CARE TEST ORDER ABIEL Final Result from Last 3 Months or Most Recently Relevant to Health Maintenance Insurance [facility] H[facility]/PPO Address: [place] [address] [facility] H[facility]/PPO Address: [address] [address] Care Teams Coverstitch Machine Operator Relationship Specialty Start Date End Date Jesus Momin DO [address] [facility] [address] [place] [address] [address] [place] [address] PCP - General Internal Medicine 06/23/24 Woo Antunez MD [address] [facility] [address] [facility] [address] [place] [address] Surgeon Vascular Surgery 05/11/24
== END 2025-01-12 15:56 | disposition home or self-care (01) ==
PROVIDERS: PCP Internal Medicine; Visit Provider Internal Medicine
DX: Z12.2 Encounter for screening for malignant neoplasm of respiratory organs (principal); F17.210 Nicotine dependence, cigarettes, uncomplicated
CPT/HCPCS: 71271